=== PATIENT | male | born 1975 | race American Indian/Alaskan Native ===

== ENCOUNTER 2018-08-16 10:49 | Outpatient (CLI) | payer OTHER ==
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
== END 2018-08-16 10:50 | disposition home or self-care (01) ==
LOC: CT 10:49
PROVIDERS: ATTEND Family Medicine
DX: K43.9 Ventral hernia without obstruction or gangrene (principal)
CPT/HCPCS: 74176